=== PATIENT | female | born 1965 | race Caucasian/White ===

== ENCOUNTER 2018-07-05 19:07 | Inpatient (IN) | payer MEDICAID ==
[~2018-07-05] VITALS: Ht 171.4 cm; Wt 51.3 kg
[~2018-07-05 19:07] MED LIST: ALBU18HF2 INH; BENZ1LOZ58 MM; BUSP10TA3 PO; CARB200T8 PO; CLON0.1T14 PO; DIPH50CA37 PO; DOCO2CRE TP; ESCI10TA PO; FOLI1TAB16 PO; GABA-534 PO; HYDR-3895 PO; LIDO30AD10 TD; METH-406 PO; MOME13HF INH; OMEP20TA5 PO; TRAZ-214 PO
--- NOTE | 2018-07-05 21:00 | NUR ---
Pre-admission Note Assessment done in the intake office. Px appears anxious. She is A&Ox4. She is here for medically supervised withdrawals from ETOH. Breath smells ETOH. Speech is clear and audible. Px can ambulate but states that she has weakness on BLE. VS are as follows BP= 131/88, MN= 97, RR= 18, T= 96.7, O2sat= 96% on RA. She complains of 9/10 H/A and 10/10 pain on left rib cage secondary to fx. Px is allergic to PCN. She has seizures due to withdrawals and epilepsy. Last seizure was 2 days ago, 07/03/2018. Unit protocols discussed. Px verbalized understanding. Admission process will continue on the unit.
[2018-07-05] MEDS ORDERED: CHLO25CA22 PO (21:43)
[2018-07-05] MEDS ORDERED: IBUP-1955 PO (21:43)
[2018-07-05] MEDS ORDERED: DIPH50CA38 PO (21:43)
[2018-07-05] MEDS ORDERED: BUSP15TA3 PO (21:43)
[2018-07-05 21:45] VITALS: BP 136/89
--- NOTE | 2018-07-05 21:45 | NUR ---
CIWA 19 Upon assessment, px appears anxious. She states that her anxiety is 9/10. She complains of H/A 9/10, left rib cage pain of 10/10, and mild stomach cramps. Mild bilateral hand tremors noted on extended arms. will continue to monitor
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
[2018-07-05] MEDS ORDERED: DICYCLOMINE HCL 20 MG TABLET PO PRN (22:30)
[2018-07-05] MEDS ORDERED: DIAZEPAM 10 MG TABLET PO PRN (22:30)
[2018-07-05] MEDS ORDERED: HYDROXYZINE PAMOATE 25 MG CAPSULE PO PRN (22:30)
[2018-07-05] MEDS ORDERED: LOPERAMIDE HCL 2 MG CAPSULE PO PRN ×2 (22:30)
[2018-07-05] MEDS ORDERED: ACETAMINOPHEN 325 MG TABLET PO PRN (22:30)
[2018-07-05] MEDS ORDERED: ONDANSETRON 4 MG/2 ML VIAL IM PRN (22:30)
[2018-07-05] MEDS ORDERED: LORAZEPAM 2 MG/1 ML VIAL IM PRN (22:30)
[2018-07-05] MEDS ORDERED: MAGNESIUM HYDROXIDE 30 ML LIQUID UDC PO PRN (22:30)
[2018-07-05] MEDS ORDERED: THIAMINE HCL 200 MG/2 ML VIAL IM ONE (22:30)
[2018-07-05] MEDS ORDERED: MIRALAX 17 GM POWD.PACK PO PRN (22:30)
[2018-07-05] MEDS ORDERED: diphenhydrAMINE 50 MG CAPSULE PO PRN (22:30)
[2018-07-05] MEDS ORDERED: DIAZEPAM 5 MG TABLET PO PRN (22:30)
[2018-07-05] MEDS ORDERED: MAG HYDROX/AL HYDROX/SIMETH 30 ML LIQUID UDC PO PRN (22:30)
[2018-07-05] MEDS ORDERED: ONDANSETRON ODT 4 MG TAB.RAPDIS SL PRN (22:30)
[2018-07-05] MEDS ORDERED: KETOROLAC TROMETHAMINE 30 MG INJ IM ONE (22:45)
[2018-07-05] MEDS: DIAZEPAM 10 MG TABLET PO PRN (22:47)
--- NOTE | 2018-07-05 22:47 | NUR ---
PRN Valium Px received Valium 20 mg PO for CIWA 19. will continue to monitor
[2018-07-05] MEDS: CLONIDINE HCL 0.1 MG TABLET PO PRN (22:48)
--- NOTE | 2018-07-05 22:48 | NUR ---
PRN Clonidine Px received Clonidine 0.1 mg PO for anxiety.
--- NOTE | 2018-07-05 22:56 | NUR ---
1x dose Toradol Px received Toradol 30 mg IM injected on left deltoids for 9/10 H/A and 07/16 pain on left rib cage. will continue to monitor
--- NOTE | 2018-07-05 23:30 | NUR ---
1x dose Toradol reassessment Px states that her H/A improved to 1/10 and her left rib cage pain improved to 4/10. will continue to monitor
--- NOTE | 2018-07-05 23:50 | NUR ---
PRN Clonidine reassessment Reassessment deferred due to the px is asleep at the moment. will continue to monitor
--- NOTE | 2018-07-05 23:50 | NUR ---
PRN Valium reassessment Reassessment deferred due to the px is asleep at the moment. will continue to monitor
[2018-07-06] VITALS: BP 119/77
[2018-07-06 00:26] LABS: *AMPHETAMINE, URINE NEGATIVE (NEGATIVE); *BARBITURATE, URINE NEGATIVE (NEGATIVE); *CANNABINOID, URINE NEGATIVE (NEGATIVE); *COCCAINE, URINE NEGATIVE (NEGATIVE); *OPIATE, URINE NEGATIVE (NEGATIVE); *PHENCYCLIDINE SCREEN,URINE NEGATIVE (NEGATIVE)
[2018-07-06 01:22] LABS: BASOPHILS # (AUTO) 0.1 K/uL (0.0-8.0); BASOPHILS % (AUTO) 1.8 % (0.0-2.0); EOSINOPHILS # (AUTO) 0.2 K/uL (0.0-0.7); EOSINOPHILS % (AUTO) 5.6 % (0.0-7.0); HEMATOCRIT 34.1 % (31.2-41.9); HEMOGLOBIN 12.4 g/dL (10.9-14.3); LYMPHOCYTES # (AUTO) 1.8 K/uL (20.0-40.0); LYMPHOCYTES % (AUTO) 41.7 % (20.5-51.5); MEAN CORPUSCULAR HEMOGLOBIN 37.2 uug (24.7-32.8); MEAN CORPUSCULAR HGB CONC 36 g/dL (32.3-35.6); MEAN CORPUSCULAR VOLUME 102.6 fL (75.5-95.3); MONOCYTES # (AUTO) 0.3 K/uL (2.0-10.0); MONOCYTES % (AUTO) 6.7 % (0.0-11.0); NEUTROPHILS # (AUTO) 1.9 K/uL (1.8-8.9); NEUTROPHILS % (AUTO) 44.2 % (38.5-71.5); PLATELET COUNT (AUTO) 169 K/uL (179-408); RED BLOOD CELL COUNT(AUTO) 3.32 MIL/uL (3.63-4.92); WHITE BLOOD COUNT (AUTO) 4.4 K/uL (3.8-11.8)
[2018-07-06 01:31] LABS: BILIRUBIN,TOTAL 0.2 mg/dL (0.2-1.0); CREATININE 0.6 mg/dL (0.6-1.3); MAGNESIUM 1.9 mg/dL (1.8-2.4); POTASSIUM 3.6 mmol/L (3.5-5.1); TOTAL PROTEIN, SERUM 7.3 g/dL (6.4-8.2)
[2018-07-06 01:36] LABS: THYROID STIMULATING HORMONE 1.577 mIU/mL (0.358-3.740)
[2018-07-06 04:00] VITALS: BP 124/69
--- NOTE | 2018-07-06 04:00 | NUR ---
CIWA 18 Px wakes up, px appears anxious. She states that her anxiety is still at 9/10. Moderate bilateral hand tremors noted on extended arms. Very mild pins and needles on both feet. will continue to monitor
[2018-07-06] MEDS: DIAZEPAM 10 MG TABLET PO PRN (04:06)
--- NOTE | 2018-07-06 04:06 | NUR ---
PRN Valium Px received Valium 20 mg PO for CIWA 18. will continue to monitor
--- NOTE | 2018-07-06 05:06 | NUR ---
PRN Valium reassessment Px states that her anxiety is not changing, it is still very high. Moderate bilateral hand tremors still noted. CIWA 18
--- NOTE | 2018-07-06 05:16 | NUR ---
PRN Zofran and Vistaril Px received Vistaril 50 mg PO for anxiety and Zofran 4 mg SL for complains of mild nausea. will continue to monitor
--- NOTE | 2018-07-06 07:05 | NUR ---
End of Shift Note During the shift at 2246, she received Valium 20 mg PO for CIWA 19. It was not effective. At 225, 1x dose Toradol 30 mg IM given for H/A 06/16 and left rib cage 07/16, it was effective. At 2247, she received Clonidine 0.1 mg PO for anxiety, it was not effective. At 405, She received Valium 20 mg PO for CIWA 18. It was not effective. At 0516, she received Vistaril 50 mg PO and Zofran 4 mg SL for nausea. Reassessment deferred due to the px was asleep. Oral intake is 700 ml, voided 1x, No BM. Px slept intermittently for 5 hours total. Last CIWA 18 at 0400. Bed on lowest position, side rails up 2x and call light within reach. Well continue to monitor. Px endorsed to AM shift nurse
--- NOTE | 2018-07-06 07:30 | NUR ---
START OF SHIFT Endorse rcvd from ongoing nurse, client is in room, alert and oriented to name, place and situation. She presents with anxious, agitated mood, flushed face, flat affect, gross tremors, and difficulty concentrating. Client is on a 1:1 sitter for unsteady gait. Client reports feeling nauseous, dyspepsia, shaking, sweating, irritable, and a sense of panic. Encourage client to increase PO fluid as tolerated to facilitate detox. PRN Valium 20mg X 2 PO for anxiety, Toradol 30mg IM for pain, Vistaril 50mg PO for anxiety, Clonidine 0.1mg Po for agitation, Zofran 4mg SL for nausea. Client slept 5 hrs. Seizure precautions in place. Side rails x 2 up/padded. Call light within reach.
[2018-07-06 08:38] VITALS: BP 113/73
[2018-07-06] MEDS: THIAMINE HCL 100 MG TABLET PO SCH (08:42)
[2018-07-06] MEDS: FOLIC ACID 1 MG TABLET PO SCH (08:42)
[2018-07-06] MEDS: MULTIVITAMINS,THERAPEUTIC TABLET PO SCH (08:42)
--- NOTE | 2018-07-06 08:42 | NUR ---
CIWA 15 & PRN Valium 10mg PO Client reports anxiety, depression, agitation, irritable, emotional volatility, racing thoughts, feverish, gross tremors, nausea, poor appetite, stomach cramps, restless legs, sweats and fatigue. PRN Valium 10mg PO administered. Call light within reach.
[2018-07-06] MEDS ORDERED: TUBERCULIN,PURIF.PROT.DERIV. 5 TU/0.1 ML TEST ID ONE (09:00)
--- NOTE | 2018-07-06 09:01 | NUR ---
PPD Test not administered, client refused, stating, "No, I just had one done recently." Client denies any chest pain or cough. MD notified.
--- NOTE | 2018-07-06 09:42 | NUR ---
Reassess PRN Valium 10mg, CIWA 13 Client reports feeling no almost no difference from an hour ago, she continues to have anxiety, depression, agitation, irritable, emotional volatility, racing thoughts, feverish, gross tremors, nausea, poor appetite, stomach cramps, restless legs, sweats and fatigue. Client refuses other available PRN meds at this time. Dr. Washington notified, she will go and see client shortly. Call light within reach.
[2018-07-06] MEDS ORDERED: 5 DAY TAPER VALIUM-SERENITY PROTOCOL PO PRN (09:45)
[2018-07-06] MEDS: ESCITALOPRAM OXALATE 10 MG TABLET PO SCH (11:22)
[2018-07-06] MEDS: KETOROLAC TROMETHAMINE 30 MG INJ IM PRN (11:22)
[2018-07-06] MEDS: busPIRone 10 MG TABLET PO SCH ×3 (11:22→16:40)
[2018-07-06] MEDS: GABAPENTIN 300 MG CAPSULE PO SCH ×3 (11:22→16:40)
--- NOTE | 2018-07-06 11:22 | NUR ---
PRN Toradol 30mg IM administered to R buttock for left lateral torso pain 05/16. Call light within reach.
[2018-07-06] MEDS ORDERED: ALBUTEROL SULFATE 8 GM HFA.AER.AD INH PRN (11:30)
--- NOTE | 2018-07-06 12:02 | NUR ---
Reassess PRN Toradol 30mg IM, client report pain at 7/10, and requests Valium, client was educated on Valium medication, she requires additional education. Call light within reach.
[2018-07-06] MEDS ORDERED: ALBUTEROL SULFATE 2.5 MG/3 ML NEBU NEB PRN (12:15)
[2018-07-06 12:17] VITALS: BP 104/62
[2018-07-06] MEDS: DIAZEPAM 10 MG TABLET PO SCH ×3 (12:31→20:24)
--- NOTE | 2018-07-06 12:31 | NUR ---
WA 19 Client reports anxiety, depression, agitation, irritable, emotional volatility, racing thoughts, feverish, gross tremors, nausea, poor appetite, stomach cramps, restless legs, sweats and fatigue. Schedule Valium 10mg PO administered. Call light within reach.
[2018-07-06] MEDS: CARBAMAZEPINE 200 MG TABLET PO SCH (16:40)
[2018-07-06 16:46] VITALS: BP 108/65
--- NOTE | 2018-07-06 17:30 | NUR ---
CIWA 18 Client continues to presents with anxiety, depression, agitation, irritable, emotional volatility, racing thoughts, feverish, gross tremors, nausea, poor appetite, stomach cramps, restless legs, sweats and fatigue. Schedule Valium 10mg PO administered. Call light within reach.
--- NOTE | 2018-07-06 19:17 | NUR ---
END OF SHIFT Endorse client to incoming nurse, client is in room, a/o x 4. Client continues to present agitation, anxiety, tremors, nausea, restlessness, and difficulty concentrating. Client is on 1:1 sitter for unsteady gait. PT consult schedule for tomorrow. Client is on first of 5 day Valium. PRN medications administered and noted per protocol. Last CIWA 18 @ 1600. PO fluid intake 796mL, void x 2, stool x 2. Client is non-compliant with group therapy due to above withdrawal symptoms. Consumes 50-75% of meals. Call light within reach.
[2018-07-06 20:00] VITALS: BP 118/73
--- NOTE | 2018-07-06 20:00 | NUR ---
Start of Shift Pt is a 53 year old female admitted for ETOH, placed on a 5 day Valium taper. At time of assessment, pt presents in bed with eyes closed. Pt responds to name and awakens easily. Pt appears flushed, skin clammy. Hair is uncombed, in disheveled stated. Pt reports feeling tired, reports body aches, joint aches, chills, moderate tremors, restlessness and anxiety/irritability. Pt is on a 1:1 for safety. CIWA 18, medications due. Safety measures in place, will continue to monitor.
[2018-07-06] MEDS: TRAZODONE 100 MG TABLET PO SCH (20:24)
[2018-07-07] VITALS: BP 102/65
--- NOTE | 2018-07-07 | NUR ---
CIWA Deferred CIWA deferred d/t pt sleeping - to assess while pt is awake as ordered. BP 102/65, Pulse 78, resp 17, SpO2 96% RA, temp 98.[address], will continue to monitor.
[2018-07-07 03:42] VITALS: BP 116/71
[2018-07-07] MEDS: CLONIDINE HCL 0.1 MG TABLET PO PRN ×3 (03:42→20:43)
--- NOTE | 2018-07-07 03:42 | NUR ---
CIWA Assessment Clonidine PRN Administration CIWA 12 Pt presents with anxiety, irritability and restlessness. Pt states, I just woke up and I feel all over the place. I had a vivid dream. Pt reports generalized body aches, chills, tremors noted and skin flushed. Clonidine 0.1mg PRN administered. Safety measures in place, will continue to monitor.
--- NOTE | 2018-07-07 04:42 | NUR ---
Clonidine PRN Reassessment Upon reassessment, pt is sleeping, eyes closed respirations even/unlabored. Safety measures in place, will continue to monitor.
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
--- NOTE | 2018-07-07 07:30 | NUR ---
START OF SHIFT Received report from hotel night auditor nurse. Pt is lying in bed resting and is easily arousable. She is a 53 yo female admitted to [facility] on 07/05 for ETOH withdrawal. 5 day Valium taper started on 07/06. Pt is on a 1:1 for unsteady gait r/t ETOH withdrawal symptoms. She mobilizes via wheelchair. PT eval ordered for today. She was administered PRN Clonidine on hotel night auditor. Respirations even and unlabored. Skin is warm and moist. Last CIWA was 12 and she slept for 9 hours. Safety measures in place.
[2018-07-07 08:00] VITALS: BP 119/75
[2018-07-07 08:06] LABS: BASOPHILS # (AUTO) 0.1 K/uL (0.0-8.0); BASOPHILS % (AUTO) 1.4 % (0.0-2.0); EOSINOPHILS # (AUTO) 0.3 K/uL (0.0-0.7); EOSINOPHILS % (AUTO) 8.1 % (0.0-7.0); HEMATOCRIT 32.3 % (31.2-41.9); HEMOGLOBIN 11.5 g/dL (10.9-14.3); LYMPHOCYTES % (AUTO) 28.3 % (20.5-51.5); MEAN CORPUSCULAR HEMOGLOBIN 37.1 uug (24.7-32.8); MEAN CORPUSCULAR HGB CONC 36 g/dL (32.3-35.6); MEAN CORPUSCULAR VOLUME 104.4 fL (75.5-95.3); MONOCYTES # (AUTO) 0.3 K/uL (2.0-10.0); MONOCYTES % (AUTO) 8.5 % (0.0-11.0); NEUTROPHILS # (AUTO) 1.9 K/uL (1.8-8.9); NEUTROPHILS % (AUTO) 53.7 % (38.5-71.5); PLATELET COUNT (AUTO) 133 K/uL (179-408); RED BLOOD CELL COUNT(AUTO) 3.09 MIL/uL (3.63-4.92); WHITE BLOOD COUNT (AUTO) 3.6 K/uL (3.8-11.8)
[2018-07-07 08:20] LABS: BILIRUBIN,DIRECT 0.1 mg/dL (0.0-0.2); BILIRUBIN,TOTAL 0.5 mg/dL (0.2-1.0); TOTAL PROTEIN, SERUM 6.8 g/dL (6.4-8.2)
--- NOTE | 2018-07-07 09:00 | NUR ---
CIWA assessment Pt has tremors, difficulty sleeping, anxiety, and restlessness. Her voice is shaky, affect is flat, mood is depressed. She is tearful during assessment. She expresses feelings of guilt and remorse. She has left sided pain 8/10 due to a fall prior to admission while intoxicated. Her body movements are hypoactive. She states "I had a terrible night's sleep with awful dreams". She remains on 1:1 for unsteady gait. CIWA score 16.
[2018-07-07] MEDS: busPIRone 10 MG TABLET PO SCH ×3 (09:04→16:54)
[2018-07-07] MEDS: FOLIC ACID 1 MG TABLET PO SCH (09:05)
[2018-07-07] MEDS: ESCITALOPRAM OXALATE 10 MG TABLET PO SCH (09:05)
[2018-07-07] MEDS: CARBAMAZEPINE 200 MG TABLET PO SCH ×2 (09:06→16:54)
[2018-07-07] MEDS: MULTIVITAMINS,THERAPEUTIC TABLET PO SCH (09:06)
[2018-07-07] MEDS: GABAPENTIN 300 MG CAPSULE PO SCH ×3 (09:06→16:54)
[2018-07-07] MEDS: THIAMINE HCL 100 MG TABLET PO SCH (09:07)
[2018-07-07] MEDS: LIDOCAINE 5% PATCH TD SCH (09:07)
[2018-07-07] MEDS: DIAZEPAM 10 MG TABLET PO SCH ×3 (09:07→20:43)
[2018-07-07] MEDS: IBUPROFEN 400 MG TABLET PO PRN ×2 (09:07→16:54)
--- NOTE | 2018-07-07 09:10 | NUR ---
Clarification of Use History Pt's UDS was positive for BZD's on admission. Pt clarified that she took one dose of Librium on the day of admission.
[2018-07-07 12:00] VITALS: BP 119/75
--- NOTE | 2018-07-07 12:30 | NUR ---
CIWA Assessment Pt is experiencing sweating, moderate tremors, anxiety, and feeling of panic. She has a flat affect and depressed mood. Her appearance is disheveled and her room is odorous. She remains on 1:1 for unsteady gait. CIWA score 15.
[2018-07-07 13:06] LABS: HEPATITIS B SURFACE AG Negative (Negative)
--- NOTE | 2018-07-07 13:51 | NUR ---
PRN Clonidine Pt states, "I feel like I'm having a panic attack". B/P has increased since last checked. B/P currently 124/79. Encouraged relaxation and deep breathing. PRN Clonidine administered. Addendum: 07/07/18 at 1553 by MARYAN DONATO RN Pt is also experiencing moderate tremors and diaphoresis.
--- NOTE | 2018-07-07 14:25 | NUR ---
Therapist prompted client to attend all group therapy sessions.
--- NOTE | 2018-07-07 14:30 | NUR ---
CIWA Assessment Pt is experiencing sweating, tremors, difficulty concentrating, and anxiety. She has been sleeping on and off. Her appearance is disheveled and her room is odorous. She remains on 1:1 for unsteady gait. CIWA score 13.
--- NOTE | 2018-07-07 14:51 | NUR ---
PRN Clonidine reassessment PRN Clonidine somewhat effective. Pt reports a moderate level of anxiety but does not have a feeling of panic anymore.
[2018-07-07 16:30] VITALS: BP 113/74
--- NOTE | 2018-07-07 16:55 | NUR ---
PRN Motrin Pt is having left upper quadrant pain 8/ r/t a fall prior to admission. She refused PRN Toradol injection. PRN Motrin administered.
--- NOTE | 2018-07-07 17:55 | NUR ---
PRN Motrin reassessment PRN Motrin somewhat effective. Pt's pain level is reduced to 4/10.
--- NOTE | 2018-07-07 19:23 | NUR ---
END OF SHIFT Report provided to fast food shift supervisor nurse. Pt is lying in bed resting. She is a 53 yo female admitted to [facility] on 07/05 for ETOH withdrawal. 5 day Valium taper started on 07/06. Pt remains on a 1:1 for unsteady gait r/t ETOH withdrawal symptoms. She mobilizes to the patio via wheelchair. PT evaluated patient today with recommendation for stand-by assist and to walk around the unit throughout the day as tolerated. She has left upper quadrant pain r/t a fall prior to admission. Lidocaine patch placed this morning per MD orders. She was experiencing ongoing anxiety. PRN Clonidine and Motrin x2 administered. She spent most of the day in bed. Last CIWA was 13 and she drank 500mL. Fluids encouraged. Safety measures in place.
[2018-07-07 20:00] VITALS: BP 110/75
--- NOTE | 2018-07-07 20:00 | NUR ---
Start of Shift Patient on bed, noted to be anxious, melancholic and with gross tremors. Patient c/o generalized body aches=4/10, with PRN medications. Patient with unsteady gait, seen and evaluated by Physical Therapist and continues on 1:1 for safety. Encouraged patient to ambulate with assistance. Patient with wheelchair on bedside for ambulation to the patio. Patient verbalized feeling depressed, no SI/HI. Patient also c/o intermittent nausea. Fall, universal, seizure and safety prec in place. Call light within reach. Latest CIWA=14. Will continue to monitor.
[2018-07-07] MEDS: TRAZODONE 100 MG TABLET PO SCH (20:43)
--- NOTE | 2018-07-07 20:44 | NUR ---
PRN Clonidine Patient c/o anxiety and increasing agitation. Patient appears fidgety. Administered Clonidine 0.1 mg PO PRN as ordered. Will reassess.
--- NOTE | 2018-07-07 21:45 | NUR ---
Clonidine reassess Patient verbalized that he anxiety level has decreased "considerably".
[2018-07-08] VITALS: BP 104/69
--- NOTE | 2018-07-08 | NUR ---
CIWA=12 Patient with 1:1 at bedside, c/o anxiety and persistent tremors. Patient verbalized feeling disappointed with herself. Provided therapeutic communication by letting patient express her feelings.
[2018-07-08] MEDS: KETOROLAC TROMETHAMINE 30 MG INJ IM PRN ×3 (02:57→22:37)
[2018-07-08] MEDS: CLONIDINE HCL 0.1 MG TABLET PO PRN ×3 (02:58→21:00)
--- NOTE | 2018-07-08 02:59 | NUR ---
PRN Toradol and Clonidine Patient c/o left torso pain around the ribcage=8/10. Patient also c/o increasing anxiety and easily gets agitated. Administered Toradol 30 mg IM PRN and Clonidine 0.1 mg PO PRN. Will reassess.
--- NOTE | 2018-07-08 03:30 | NUR ---
Toradol reassess Patient asleep on bed with no facial grimacing and SOB noted.
[2018-07-08 04:00] VITALS: BP 111/67
--- NOTE | 2018-07-08 04:00 | NUR ---
CIWA=12 and Clonidine reassess Patient verbalized feeling "a tad better and stated that current pain level of the left torso=3/10. Patient is intermittently anxious and continues to have tremors and has a depressed mood. 1:1 sitter for safety at bedside.
--- NOTE | 2018-07-08 07:15 | NUR ---
End of Shift Patient continues to need standby assistance when ambulating and needs wheelchair to be brought to the pation. Patient on 1:1 for safety. Patient noted with gross tremors and is anxious and is depressed mood. Encouraged patient to ambulate this morning, walker will be provided if patient requests for it. Patient verbalized having intermittent nausea and continues to c/o left torso pain s/p fall 2 days prior to admission. Patient with sad demeanor and is disheveled. Fall, universal, seizure and safety prec in place. Call light within reach. Latest CIWA=12, slept for 6 hours. Endorsed to AM shift nurse for continuity of care.
[2018-07-08 08:00] VITALS: BP 94/61
--- NOTE | 2018-07-08 08:00 | NUR ---
Start Of Shift / CIWA 15 Received 53 y/o F admitted on 07/05/18 for medically supervised ETOH withdrawal. Today is the 3rd day of a 5 day valium taper and tolerating well. Received pt a/ox4, respirations even and unlabored. 1:1 sitter at bedside for unsteady gait. Pt has a disheveled appearance, anxious and depressive mood, flat affect. Pt presents anxiety, panic attacks, agitation, restlessness, clammy skin, c/o sensitivity to the light, headache, pain in the L rib cage fx d/t a fall, fatigue, increased emotional amplitude, gross/fine tremors are noted. Last CIWA 12, toradol and clonidine prns given last night and slept 6 hrs. Pt ambulates via wheelchair when going downstairs. Encouraged pt to walk in the hallway during the day w/ assistance as tolerated; pt verbalized understanding. Educated pt with today's plan of care and med regimen. Side rails upx2, bed in lowest position. Call light is within reach. Will continue to monitor.
[2018-07-08] MEDS: ESCITALOPRAM OXALATE 10 MG TABLET PO SCH (09:06)
[2018-07-08] MEDS: CARBAMAZEPINE 200 MG TABLET PO SCH ×2 (09:06→16:46)
[2018-07-08] MEDS: FOLIC ACID 1 MG TABLET PO SCH (09:06)
[2018-07-08] MEDS: DIAZEPAM 5 MG TABLET PO SCH ×4 (09:06→21:00)
[2018-07-08] MEDS: GABAPENTIN 300 MG CAPSULE PO SCH ×3 (09:06→16:46)
[2018-07-08] MEDS: THIAMINE HCL 100 MG TABLET PO SCH (09:06)
[2018-07-08] MEDS: LIDOCAINE 5% PATCH TD SCH (09:06)
[2018-07-08] MEDS: busPIRone 10 MG TABLET PO SCH ×3 (09:06→16:46)
[2018-07-08] MEDS: MULTIVITAMINS,THERAPEUTIC TABLET PO SCH (09:06)
--- NOTE | 2018-07-08 09:07 | NUR ---
PRN Toradol 30 mg IM given for c/o pain in the L rib side fx pain 05/16. Will monitor and reassess.
--- NOTE | 2018-07-08 09:17 | NUR ---
Reassessment Pt reports pain is much more tolerable and decreased to 5/10. Will continue to monitor.
--- NOTE | 2018-07-08 11:16 | NUR ---
PRN Clonidine 0.1 mg po prn given for c/o sense of panic, extreme anxiety, pt is in bed taking deep breaths and closing her eyes. Will monitor closely and reassess. 1:1 sitter at beside.
--- NOTE | 2018-07-08 12:16 | NUR ---
Reassessment Pt is laying in bed w/ eyes closed, appears to be sleeping. Sitter by bedside, safety measures in place. Will continue to closely monitor.
[2018-07-08 12:27] VITALS: BP 106/76
--- NOTE | 2018-07-08 13:40 | NUR ---
CIWA 16 Pt has is awake from nap and states she is feeling somewhat better than previously; presents gross tremors, depressive and anxious mood, increased emotional amplitude, flat affect, clammy skin, pain in the L rib cage d/t fx, restlessness, sensitivity to the light, fatigue, anhedonia, dysphoria, and agitation. Pt is to be given scheduled buspar, gabapentin and valium. Will continue to monitor. Sitter at bedside.
[2018-07-08 16:00] VITALS: BP 102/68
--- NOTE | 2018-07-08 16:30 | NUR ---
CIWA 16 Pt donald been in room in bed, continues to presents gross/fine tremors, a flat affect, depressive and anxious mood, increased emotional amplitude, clammy skin, pain in the L rib cage d/t fx 6/10 pain, restlessness, sensitivity to the light, fatigue, anhedonia, dysphoria, and agitation. Pt is to be given scheduled 1700 buspar, gabapentin and valium. Will continue to monitor. Sitter at bedside.
--- NOTE | 2018-07-08 19:33 | NUR ---
End Of Shift Pt has been mostly isolative in room during shift. Pt had an episode of increased anxiety w/ sense of panic; clonidine given and effective. Pt slept intermittently throughout shift. C/o L rib pain r/t s/p fall injury. Toradol IM prn given. Last CIWA 16 @1600. VS wnl. Encouraged pt to increase food intake; pt verbalized decreased appetite makes it difficult to eat. Gross/fine tremors noted. 1:1 sitter continued for unsteady gait. Safety measures in place.
[2018-07-08 20:00] VITALS: BP 128/74
--- NOTE | 2018-07-08 20:00 | NUR ---
Start of Shift Patient on bed with 1:1 sitter for safety, noted to be anxious and observed with gross tremors and is fidgety. Patient with weak gait but can ambulate with assistance by 1 person. No wheelchair needed for ambulation to the patio. Encouraged patient to continue to ambulate. Patient appears melancholic. Patient also c/o intermittent nausea. Fall, universal, seizure and safety prec in place. Call light within reach. Latest CIWA=13. Will continue to monitor.
[2018-07-08] MEDS: TRAZODONE 100 MG TABLET PO SCH (21:00)
--- NOTE | 2018-07-08 21:00 | NUR ---
PRN Clonidine Patient c/o increasing anxiety, noted to be fidgety. Administered Clonidine 0.1 mg PO PRN. Will reassess.
--- NOTE | 2018-07-08 22:00 | NUR ---
Clonidine reassess Patient verbalized that her anxiety level has decreased and appears relaxed.
--- NOTE | 2018-07-08 22:38 | NUR ---
PRN Toradol Patient c/o left torso pain around the ribcage=8/10, observed to have facial grimacing and irritability. Administered Toradol 30 mg IM PRN. Will reassess.
--- NOTE | 2018-07-08 23:10 | NUR ---
Toradol reassess Patient stated that her pain level has decreased to 3/10. No facial grimacing noted.
[2018-07-09] VITALS: BP 114/71
--- NOTE | 2018-07-09 | NUR ---
CIWA=12 Patient continues to have tremors, has erratic anxiety levels and c/o pain on left ribcage upon movement. Pain is relieved by Toradol.
[2018-07-09 04:00] VITALS: BP 109/68
--- NOTE | 2018-07-09 04:00 | NUR ---
CIWA=12 Patient presents with depressed mood and is withdrawn. Patient has continuous anxiety and tremors. Patient verbalized feeling better today than yesterday.
--- NOTE | 2018-07-09 07:08 | NUR ---
End of Shift Patient continues on 1:1 for safety, ambulates with 1 person assist. Patient can tolerate ambulating to the patio without the use of wheelchair. Patient still noted with gross tremors, is anxious and in depressed mood. Patient continues to c/o left torso pain, relieved by Toradol IM PRN. Patient is disheveled and with unkempt hair. Fall, universal, seizure and safety prec in place. Call light within reach. Latest CIWA=12, slept for 6 hours. Endorsed to AM shift nurse for continuity of care.
--- NOTE | 2018-07-09 07:44 | NUR ---
Start Of Shift / CIWA 12 Received 53 y/o F admitted on 07/05/18 for medically supervised ETOH withdrawal. Today is the 4th day of a 5 day valium taper and tolerating well. Received pt a/ox4, respirations even and unlabored. 1:1 sitter at bedside for unsteady gait. Pt is laying in bed, has a disheveled appearance, has a depressive mood, with flat affect. Pt presents anxiety, panic attacks, agitation, restlessness, clammy skin, c/o sensitivity to the light, headache, pain in the L rib cage fx r/t s/p fall, fatigue, increased emotional amplitude, dysphoria, anhedonia, gross/fine tremors are noted. Last , toradol and clonidine prns given last night and slept 6 hrs. Encouraged pt to walk in the hallway during the day w/ assistance as instructed by pt and as tolerated; pt verbalized understanding. Educated pt with today's plan of care and med regimen. Side rails upx2, bed in lowest position. Call light is within reach. Will continue to monitor.
[2018-07-09 08:08] VITALS: BP 98/64
[2018-07-09] MEDS: ESCITALOPRAM OXALATE 10 MG TABLET PO SCH (08:47)
[2018-07-09] MEDS: MULTIVITAMINS,THERAPEUTIC TABLET PO SCH (08:47)
[2018-07-09] MEDS: GABAPENTIN 300 MG CAPSULE PO SCH ×3 (08:47→17:59)
[2018-07-09] MEDS: CARBAMAZEPINE 200 MG TABLET PO SCH ×2 (08:47→17:59)
[2018-07-09] MEDS: busPIRone 10 MG TABLET PO SCH ×3 (08:47→17:59)
[2018-07-09] MEDS: DIAZEPAM 5 MG TABLET PO SCH ×3 (08:47→21:27)
[2018-07-09] MEDS: THIAMINE HCL 100 MG TABLET PO SCH (08:47)
[2018-07-09] MEDS: KETOROLAC TROMETHAMINE 30 MG INJ IM PRN ×2 (08:48→21:27)
[2018-07-09] MEDS: FOLIC ACID 1 MG TABLET PO SCH (08:48)
--- NOTE | 2018-07-09 08:48 | NUR ---
PRN Toradol 30 mg IM prn given for L rib pain r/t rib fx s/p fall. Pt states pain is 8/10. Will monitor and reassess.
[2018-07-09] MEDS: LIDOCAINE 5% PATCH TD SCH (08:50)
--- NOTE | 2018-07-09 09:48 | NUR ---
Reassessment Pt reports med as effective in decreasing L ribcage pain from 8 to 6 out of 10. Will monitor and reassess.
--- NOTE | 2018-07-09 10:35 | NUR ---
Therapist prompted client to attend twice daily group therapy sessions.
[2018-07-09 12:24] VITALS: BP 113/74
--- NOTE | 2018-07-09 12:30 | NUR ---
CIWA 12 Pt has been sleeping intermittently, states it is due to her meds. Pt has a depressive mood, with flat affect. Pt presents anxiety, agitation, restlessness, clammy skin, headache, pain in the L rib cage fx r/t s/p fall, fatigue, increased emotional amplitude, dysphoria, anhedonia, gross/fine tremors are noted. Gabapentin and buspar to be given. Pt states she will attend afternoon group. Will continue to monitor.
--- NOTE | 2018-07-09 13:59 | NUR ---
Therapist prompted client to attend group therapy.
[2018-07-09 16:00] VITALS: BP 109/79
--- NOTE | 2018-07-09 16:30 | NUR ---
CIWA 12 Pt continues to have a depressive mood, with flat affect. Pt states due to some of her meds, she has been feeling tired after taking it. Pt presents fatigue, anxiety, agitation, restlessness, clammy skin, headache, pain in the L rib cage fx r/t s/p fall, fatigue, increased emotional amplitude, dysphoria, anhedonia, gross/fine tremors are noted. Gabapentin, tegretol and buspar to be given. Will continue to monitor.
[2018-07-09] MEDS: CLONIDINE HCL 0.1 MG TABLET PO PRN (18:03)
--- NOTE | 2018-07-09 18:03 | NUR ---
PRN Clonidine 0.1 mg po prn given for increased anxiety and palpitations. Will monitor and reassess.
--- NOTE | 2018-07-09 19:03 | NUR ---
Reassessment Pt appears to be sleeping in bed. Eyes are closed, respirations even and unlabored. Sitter at bedside.
--- NOTE | 2018-07-09 19:14 | NUR ---
End Of Shift Last CIWA 12. continues to have 1:1 sitter for unsteady gait. Pt was able to ambulate in the hallways without assistance today however still weak and tremulous. Pt went to afternoon group. Toradol IM and clonidine prn was given to pt and effective. safety measures in place.
[2018-07-09 20:00] VITALS: BP 118/81
--- NOTE | 2018-07-09 20:00 | NUR ---
Start of Shift Note Received 53 y/o female nathan, admitted for medically supervised withdrawal from ETOH. Px was placed on 5 day Valium taper started 07/06/2018. She is tolerating it. Px is still on 1 to 1 for safety. Nathan states that she walk by herself today without help. Last reported CIWA 12 by AM shift nurse. During the rounds at 1999, nathan is awake on bed in fowlers position, watching TV. She states that her anxiety is 7/10 and still complains of left rib cage pain 7/10. Bilateral hand tremors noted on extended arms. Bed side on lowest position, side rails up 2x , and call light within reach. Well continue to monitor.
--- NOTE | 2018-07-09 20:00 | NUR ---
CIWA 13 On assessment, she states that her anxiety is 7/10 and still complains of left rib cage pain 7/10. Bilateral hand tremors noted on extended arms. will continue to monitor
[2018-07-09] MEDS: TRAZODONE 100 MG TABLET PO SCH (21:27)
--- NOTE | 2018-07-09 21:27 | NUR ---
PRN Toradol Px received Toradol 30 mg IM injection for pain of 7/10. To reassess after 30 mins. will continue to monitor
--- NOTE | 2018-07-09 22:00 | NUR ---
JUSTIN Shaffer Px states that her left rib cage pain improved to 01/14, "It comes and goes." will continue to monitor Addendum: 07/09/18 at 2303 by ELDA FRITZ RN Reassessment
[2018-07-10] VITALS: BP 110/77
--- NOTE | 2018-07-10 | NUR ---
CIWA deferred CIWA deferred due to the px is asleep, to assess if the px is awake per doctor's order. will continue to monitor
[2018-07-10 04:00] VITALS: BP 100/69
--- NOTE | 2018-07-10 04:00 | NUR ---
CIWA deferred CIWA deferred due to the px is asleep, to assess if the px is awake per doctor's order. will continue to monitor
--- NOTE | 2018-07-10 07:10 | NUR ---
End of Shift Note During the shift at 2126, px received Toradol 30 mg IM injection for left rib cage pain of 04/15. It was effective. Oral intake is 1400 ml, voided 4x, BM 2x. Slept for 7 hours. Last CIWA 13. Bed side on lowest position, side rails up 2x , and call light within reach. Well continue to monitor. Px endorsed to AM shift nurse
[2018-07-10 08:00] VITALS: BP 125/80
--- NOTE | 2018-07-10 08:00 | NUR ---
Start of Shift Notes/CIWA Assessment: Patient endorsement received from night nurse. Patient is a 53 year old female admitted for ETOH withdrawal who was placed on a 5-day Valium taper as ordered. Patient will be on her last day of the taper. She was given PRN Toradol during the night. Last CIWA 13 and slept for a total of 7 hours. 1:1 at bedside due to unsteady gait. Received patient in her room. Alert and oriented x 4. Denies S/I or H/I noted. No AV hallucinations noted. She appears disheveled, dark circles around eyes with worried facial expression. Noted with gross tremors, complains of intermittent sweating, increased anxiety, agitation and generalized discomfort. CIWA 16 upon this assessment. She also complains of 8/10 generalized pain and receives Lidocaine patch for pain management. Encouraged patient to verbalize her feelings and concerns. Educated patient on her current plan of care for the day and her medication regimen. Encourage oral fluid intake and encouraged group participation to learn new skills to prevent relapse. All needs met and attended. Will continue to monitor closely.
[2018-07-10] MEDS: busPIRone 10 MG TABLET PO SCH ×3 (09:07→16:31)
[2018-07-10] MEDS: MULTIVITAMINS,THERAPEUTIC TABLET PO SCH (09:07)
[2018-07-10] MEDS: GABAPENTIN 300 MG CAPSULE PO SCH ×3 (09:07→16:31)
[2018-07-10] MEDS: FOLIC ACID 1 MG TABLET PO SCH (09:08)
[2018-07-10] MEDS: CARBAMAZEPINE 200 MG TABLET PO SCH ×2 (09:08→16:31)
[2018-07-10] MEDS: ESCITALOPRAM OXALATE 10 MG TABLET PO SCH (09:08)
[2018-07-10] MEDS: KETOROLAC TROMETHAMINE 30 MG INJ IM PRN (09:09)
[2018-07-10] MEDS: THIAMINE HCL 100 MG TABLET PO SCH (09:09)
[2018-07-10] MEDS: DIAZEPAM 5 MG TABLET PO SCH ×2 (09:09→21:19)
[2018-07-10] MEDS: LIDOCAINE 5% PATCH TD SCH (09:09)
--- NOTE | 2018-07-10 09:09 | NUR ---
Toradol 30 mg IM given: Patient noted with complain of 8/10 generalized pain. Non-pharmacological interventions provided but ineffective. Medicated patient with Toradol 30 mg IM as ordered. Will monitor for effectiveness.
--- NOTE | 2018-07-10 09:39 | NUR ---
Re-assessment: Toradol Patient reports her PL is now a /. PRN Toradol was effective.
[2018-07-10 12:00] VITALS: BP 123/77
--- NOTE | 2018-07-10 12:00 | NUR ---
CIWA Assessment: CIWA 14, patient continues to present with s/s of withdrawal related to ETOH m/b gross tremors, generalized discomfort, difficulty concentrating, fatigue, anxiety, and generalized discomfort. Encourage patient to participate in group and activities. Will continue to monitor and provide support.
--- NOTE | 2018-07-10 12:58 | NUR ---
Off 1:1: Patient was seen and examined by Dr. Simmons. Patient is able to ambulate with steady gait. Off 1:1 at this time. Educated patient on safety and fall precautions.
[2018-07-10 16:00] VITALS: BP 119/82
--- NOTE | 2018-07-10 16:14 | NUR ---
CIWA Assessment: CIWA 11, patient continues to present with s/s of withdrawal m/b gross tremors, anxiety, agitation, intermittent perspiration, fatigue, and facial flushing. Patient was able to participate in group and activities. Will continue to monitor the patient and medicate as ordered. Will continue to monitor.
--- NOTE | 2018-07-10 19:02 | NUR ---
End of Shift Notes: Patient continues to be on 5-day Valium taper as ordered. This is patients 5th day of her taper. VS monitored closely. No significant abnormalities noted. Withdrawal symptoms were closely monitored. Initial CIWA 16, patient presented with gross tremors, intermittent perspiration, myalgia, anxiety, agitation, worried facial expression, anhedonia, paresthesia, and generalized discomfort. Last CIWA 11. Patient verbalizes that Valium has been effective in reducing her withdrawal symptoms. Patient was taken off 1:1 today. She denies S/I or H/I noted. No AV hallucinations. Patient requires encouragement to attend activities and participate in group. PRN Toradol was given at 0909 for left rib pain and generalized myalgia with help. All needs met and attended. Will continue to monitor.
--- NOTE | 2018-07-10 19:30 | NUR ---
Start of Shift Patient Received. Per endorsement, patient continues on a modified Valium taper. 1:1 was discontinued per MD. Patient noted with steady gait and no assistance needed. Patient was given PRN Toradol with medication noted to be effective. PRN Toradol changed to PRN Mobic. Last noted CIWA 11. Upon rounds patient is noted in her room, awake, alert and verbally responsive. Breathing even and non labored. Patient is noted to be disheveled with flat affect. Patient is able to verbalize that medication has been noted effective with minimizing signs and symptoms of withdrawal. Patient is focused on receiving PRN medications throughout the night due to patient not being able to sleep. Explained to patient to try and stay present. Patient is able to be redirected. All needs attended to promptly. Will continue plan of care as ordered.
[2018-07-10 20:30] VITALS: BP 107/71
[2018-07-10] MEDS: MELOXICAM 7.5 MG TABLET PO PRN (21:19)
[2018-07-10] MEDS: TRAZODONE 100 MG TABLET PO SCH (21:19)
--- NOTE | 2018-07-10 21:20 | NUR ---
PRN Medication Administration patient is noted verbalizing increased pain due. PRN Mobic administered with routine medications. Will continue to monitor.
--- NOTE | 2018-07-10 22:20 | NUR ---
PRN Medication Reassessment Patient is noted in bed with eyes closed. Breathing even and non labored. No signs of restlessness or discomfort noted. PRN Mobic noted to be effective. Will continue to monitor.
--- NOTE | 2018-07-11 00:30 | NUR ---
PRN Medication Reassessment Patient is noted in bed with eyes closed. Breathing even and non labored. No signs of restlessness or facial grimacing noted. PRN Clonidine noted to be effective. Will continue to monitor. Addendum: 07/11/18 at 0147 by DHAVAL ENGEL LVN ENTERED at WRONG TIME
[2018-07-11 00:32] VITALS: BP_SYST 92; BP_SYST 96; BP_DIAS 51; BP_DIAS 63
[2018-07-11] MEDS: CLONIDINE HCL 0.1 MG TABLET PO PRN ×2 (00:38→15:24)
--- NOTE | 2018-07-11 00:38 | NUR ---
PRN Medication Administration patient is noted awake and verbalizing increased anxiety, agitation, tremors, and chills. PRN Clonidine administered. Will continue to monitor.
--- NOTE | 2018-07-11 01:30 | NUR ---
PRN Medication Reassessment Patient is noted in bed with eyes closed. Breathing even and non labored. No signs of restlessness or facial grimacing noted. PRN Clonidine noted to be effective. Will continue to monitor.
--- NOTE | 2018-07-11 04:20 | NUR ---
PRN Medication Administration Patient is noted in bed with eyes closed. Breathing even and non labored. No signs of restlessness or facial grimacing noted. Vitals refused. CIWA not able to be completed as per order. Will continue to monitor. Addendum: 07/11/18 at 0547 by DHAVAL ENGEL LVN CIWA Assessment
[2018-07-11 06:52] LABS: BASOPHILS # (AUTO) 0.1 K/uL (0.0-8.0); BASOPHILS % (AUTO) 1.3 % (0.0-2.0); EOSINOPHILS # (AUTO) 0.2 K/uL (0.0-0.7); EOSINOPHILS % (AUTO) 5.2 % (0.0-7.0); HEMATOCRIT 31.9 % (31.2-41.9); HEMOGLOBIN 11.3 g/dL (10.9-14.3); LYMPHOCYTES # (AUTO) 1.3 K/uL (20.0-40.0); LYMPHOCYTES % (AUTO) 29.7 % (20.5-51.5); MEAN CORPUSCULAR HEMOGLOBIN 36.9 uug (24.7-32.8); MEAN CORPUSCULAR HGB CONC 36 g/dL (32.3-35.6); MONOCYTES # (AUTO) 0.5 K/uL (2.0-10.0); MONOCYTES % (AUTO) 12.9 % (0.0-11.0); NEUTROPHILS # (AUTO) 2.2 K/uL (1.8-8.9); NEUTROPHILS % (AUTO) 50.9 % (38.5-71.5); PLATELET COUNT (AUTO) 135 K/uL (179-408); RED BLOOD CELL COUNT(AUTO) 3.07 MIL/uL (3.63-4.92); WHITE BLOOD COUNT (AUTO) 4.3 K/uL (3.8-11.8)
[2018-07-11 07:05] LABS: BILIRUBIN,TOTAL 0.2 mg/dL (0.2-1.0); CREATININE 0.6 mg/dL (0.6-1.3); POTASSIUM 4.1 mmol/L (3.5-5.1); TOTAL PROTEIN, SERUM 7.1 g/dL (6.4-8.2)
--- NOTE | 2018-07-11 07:10 | NUR ---
End of Shift Patient is in bed, awake, alert and verbally responsive. Breathing even and non labored. Patient continues on a modified Valium taper. Patient noted with steady gait and no assistance needed. Patient received PRN Mobic and Clonidine with medication noted to be effective. Patient noted to sleep a total of 8 hours. Last noted CIWA 10. All needs attended to promptly. Will endorse to continue plan of care as ordered.
[2018-07-11 08:00] VITALS: BP 91/58
--- NOTE | 2018-07-11 08:00 | NUR ---
Start of Shift Notes/CIWA Assessment: Patient endorsement received from night nurse. Patient is a 53 year old female admitted for ETOH withdrawal who was placed on a 5-day Valium taper as ordered. She was given PRN Clonidine and Mobic as ordered. Last CIWA 10 and slept for a total of 7 hours. Received patient in her room. Alert and oriented x 4. Denies S/I or H/I noted. No AV hallucinations noted. She appears disheveled, and worried. Noted with gross tremors, complains of intermittent sweating, increased anxiety, agitation and generalized discomfort. CIWA 10 upon this assessment. She also complains of 8/10 generalized pain and headache, receives Lidocaine patch for pain management. Encouraged patient to verbalize her feelings and concerns. Educated patient on her current plan of care for the day and her medication regimen. Encourage oral fluid intake and encouraged group participation to learn new skills to prevent relapse. All needs met and attended. Will continue to monitor closely.
[2018-07-11] MEDS: CARBAMAZEPINE 200 MG TABLET PO SCH ×2 (08:33→16:33)
[2018-07-11] MEDS: FOLIC ACID 1 MG TABLET PO SCH (08:33)
[2018-07-11] MEDS: busPIRone 10 MG TABLET PO SCH ×3 (08:33→16:33)
[2018-07-11] MEDS: ESCITALOPRAM OXALATE 10 MG TABLET PO SCH (08:33)
[2018-07-11] MEDS: MULTIVITAMINS,THERAPEUTIC TABLET PO SCH (08:33)
[2018-07-11] MEDS: THIAMINE HCL 100 MG TABLET PO SCH (08:33)
[2018-07-11] MEDS: MELOXICAM 7.5 MG TABLET PO PRN ×2 (08:33→22:12)
[2018-07-11] MEDS: GABAPENTIN 300 MG CAPSULE PO SCH ×3 (08:33→16:33)
[2018-07-11] MEDS: LIDOCAINE 5% PATCH TD SCH (08:33)
--- NOTE | 2018-07-11 08:33 | NUR ---
Tylenol 650 mg PO/Mobic PO as ordered: Patient complained of 8/10 generalized pain, and headache. Non-pharmacological interventions provided but ineffective. Medicated patient with Tylenol 650 mg PO and Mobic PO as ordered. Oral intake encouraged to prevent stomach upset. Will continue to monitor.
--- NOTE | 2018-07-11 09:33 | NUR ---
Re-assessment: Tylenol/Mobic Patient verbalizes relief from generalized body pain and headache. She reports her pain level is now a 3 out of 10. PRN Tylenol and Mobic was effective.
[2018-07-11 12:00] VITALS: BP 115/61
--- NOTE | 2018-07-11 12:30 | NUR ---
CIWA Assessment: CIWA 8, patient continues to present with s/s of withdrawal m/b increased anxiety, agitation, gross tremors and intermittent perspiration. Offered PO fluids and support. Will continue to monitor.
[2018-07-11] MEDS ORDERED: MELO-105 PO (13:42)
[2018-07-11] MEDS ORDERED: METH-406 PO (13:42)
[2018-07-11] MEDS ORDERED: GABA-534 PO (13:42)
[2018-07-11] MEDS ORDERED: CLON0.1T14 PO (13:42)
[2018-07-11] MEDS ORDERED: TRAZ-214 PO (13:42)
[2018-07-11] MEDS ORDERED: BUSP10TA3 PO (13:42)
[2018-07-11] MEDS ORDERED: CARB200T8 PO (13:42)
[2018-07-11] MEDS ORDERED: ESCI10TA PO (13:42)
[2018-07-11] MEDS ORDERED: ALBU18HF2 INH (13:42)
[2018-07-11] MEDS ORDERED: HYDR-3895 PO (13:42)
--- NOTE | 2018-07-11 15:24 | NUR ---
PRN CLONIDINE Patient reports increase anxiety, and agitation. Provided with non pharmacological interventions with no relief, administered clonidine 0.1mg PO as ordered,endorsed to primary nurse to f/u effectiveness.
[2018-07-11 16:00] VITALS: BP 94/72
--- NOTE | 2018-07-11 16:10 | NUR ---
CIWA Assessment: CIWA 8, patient continues to present with intermittent sweating, myalgia, anxiety, agitation and generalized discomfort. Offered PRNs. Will medicate patient as ordered.
--- NOTE | 2018-07-11 16:24 | NUR ---
Re-assessment: Clonidine Patient verbalizes relief from anxiety and agitation. PRN Clonidine was effective.
--- NOTE | 2018-07-11 19:04 | NUR ---
End of Shift Notes: Patient completed her 5-day Valium taper and will be discharging tomorrow AM. VS monitored closely. No significant abnormalities noted. Withdrawal symptoms were closely monitored. Initial CIWA 10, patient presented with gross tremors, intermittent perspiration, myalgia, anxiety, agitation, worried facial expression, and generalized discomfort. Last CIWA 8. Patient verbalizes that Valium has been effective in reducing her withdrawal symptoms. Patient was able to participate in group and activities despite her withdrawal symptoms. PRN Tylenol and Mobic given at 0833 for headache and generalized pain with help and Clonidine 0.1mg PO given at 1534 with help. Appetite good. All needs met and attended. Will continue to monitor.
--- NOTE | 2018-07-11 19:30 | NUR ---
Start of Shift Patient Received. Per endorsement, patient has completed a 5 day Valium taper. Patient is set for discharge tomorrow 07/12/18. She received Tylenol, Mobic, and Clonidine with medications noted to be effective. Last noted COWS 8. Patient has been compliant with medications and plan of care as ordered. Upon rounds, patient is noted to be in the activities room participating in a group meeting. Will continue plan of care as ordered.
[2018-07-11 20:28] VITALS: BP 109/75
--- NOTE | 2018-07-11 20:30 | NUR ---
CIWA assessment Patient continues to be monitored for increased signs and symptoms of withdrawal. He is noted with increased body aches, Restlessness, tremulous, increased anxiety, agitation, and increased sweats. Patient verbalizes that medication has been noted to minimize symptoms. CIWA noted to be 12. Will continue to monitor.
[2018-07-11] MEDS: TRAZODONE 100 MG TABLET PO SCH (22:12)
--- NOTE | 2018-07-11 22:15 | NUR ---
PRN Medication Administration Patient is noted verbalizing increased pain and requesting PRN Mobic. Medication administered. Will continue to monitor.
--- NOTE | 2018-07-11 23:15 | NUR ---
PRN Medication Reassessment Patient is noted in bed with eyes closed. Breathing even and non labored. PRN Mobic noted to be effective. Will continue to monitor.
--- NOTE | 2018-07-12 00:25 | NUR ---
CIWA Assessment Patient is noted in bed with eyes closed. Breathing even and non labored. No restlessness or facial grimacing noted. CIWA not able to be completed as per order. Vital signs refused. Will continue to monitor.
--- NOTE | 2018-07-12 06:58 | NUR ---
End of Shift Patient is in bed with eyes closed. Breathing even and non labored. No signs of restlessness or discomfort noted. Patient has completed a 5 day Valium taper. She is set for discharge today 07/12/18. She received PRN Mobic with medication noted to be effective. Patient noted to sleep a total of 7 hours Last noted CIWA 12. All needs attended to promptly. Will endorse to continue plan of care as ordered.
--- NOTE | 2018-07-12 07:38 | NUR ---
Start Of Shift / CIWA 8 Received 53 y/o F admitted on 07/05/18 for medically supervised ETOH withdrawal. Pt has completed a 5 day valium taper and tolerated well. Pt is scheduled to be discharged today. Received pt a/ox4, respirations even and unlabored. Pt has a disheveled appearance, has a depressive mood, with flat affect. Pt presents anxiety, agitation, restlessness, clammy skin, pain in the L rib cage fx r/t s/p fall, increased emotional amplitude, dysphoria, anhedonia, tremors are noted. Last CIWA 12, mobic prn given last night and slept 7 hrs. Side rails upx2, bed in lowest position. Call light is within reach. Will continue to monitor.
[2018-07-12 08:00] VITALS: BP 102/60
[2018-07-12] MEDS: THIAMINE HCL 100 MG TABLET PO SCH (08:22)
[2018-07-12] MEDS: CARBAMAZEPINE 200 MG TABLET PO SCH (08:22)
[2018-07-12] MEDS: MULTIVITAMINS,THERAPEUTIC TABLET PO SCH (08:22)
[2018-07-12] MEDS: ESCITALOPRAM OXALATE 10 MG TABLET PO SCH (08:22)
[2018-07-12] MEDS: GABAPENTIN 300 MG CAPSULE PO SCH (08:22)
[2018-07-12] MEDS: busPIRone 10 MG TABLET PO SCH (08:22)
[2018-07-12] MEDS: FOLIC ACID 1 MG TABLET PO SCH (08:23)
[2018-07-12] MEDS: MELOXICAM 7.5 MG TABLET PO PRN (08:23)
[2018-07-12 08:24] VITALS: BP 102/60
[2018-07-12] MEDS: CLONIDINE HCL 0.1 MG TABLET PO PRN (08:24)
--- NOTE | 2018-07-12 08:24 | NUR ---
PRN Mobic and clonidine prns given for c/o anxiety, pain in the L ribcage 8/10 pain. Will monitor and reassess.
[2018-07-12] MEDS: LIDOCAINE 5% PATCH TD SCH (08:25)
--- NOTE | 2018-07-12 09:24 | NUR ---
Reassessment Pt reports med as effective; anxiety and pain is low at a tolerable level.
--- NOTE | 2018-07-12 09:37 | NUR ---
Discharge Note Pt is in stable condition, VS wnl. Pt has been given d/c instructions and pt verbalize understanding. Last CIWA 8. aware of pt d/c. Pt has left the building on 07/12/18 0937 with all belongings, home meds, d/c paperwork and is discharging to home.
== END 2018-07-12 09:37 | disposition home or self-care (01) | DRG 772 ==
LOC: SRC 19:57
PROVIDERS: ADMIT Internal Medicine; ATTEND Internal Medicine
PROC: HZ2ZZZZ Detoxification Services for Substance Abuse Treatment (ICD-10-PCS; principal; 2018-07-05)
PROC: HZ41ZZZ Group Counseling for Substance Abuse Treatment, Behavioral (ICD-10-PCS; 2018-07-09)
PROC: HZ31ZZZ Individual Counseling for Substance Abuse Treatment, Behavioral (ICD-10-PCS; 2018-07-09)
DX: F10.239 Alcohol dependence with withdrawal, unspecified (principal); F50.00 Anorexia nervosa, unspecified; F33.2 Major depressive disorder, recurrent severe without psychotic features; D69.59 Other secondary thrombocytopenia; K85.20 Alcohol induced acute pancreatitis without necrosis or infection; R56.9 Unspecified convulsions; F15.21 Other stimulant dependence, in remission; Y90.9 Presence of alcohol in blood, level not specified; F41.1 Generalized anxiety disorder; J45.909 Unspecified asthma, uncomplicated; Z87.01 Personal history of pneumonia (recurrent); K21.9 Gastro-esophageal reflux disease without esophagitis; G47.00 Insomnia, unspecified; F17.210 Nicotine dependence, cigarettes, uncomplicated; R73.9 Hyperglycemia, unspecified; Z81.3 Family history of other psychoactive substance abuse and dependence; Z79.899 Other long term (current) drug therapy
CPT/HCPCS: 36415; 70030-TC; 80307; 80346; 83690; 83735; 84443; 85025; 86592; 86705; 86803; 87340; 87806; G0480; J1885; J3411; Q0162

== ENCOUNTER 2018-07-25 00:04 | Emergency (ER) | payer MEDICAID ==
[~2018-07-25] VITALS: Ht 170.2 cm; Wt 56.2 kg
[~2018-07-25 00:04] MED LIST changes: -BENZ1LOZ58 MM; -DIPH50CA37 PO; +MELO-105 PO
--- NOTE | 2018-07-25 00:33 | NUR ---
DANDY ARAUJO AT BEDSIDE.
--- NOTE | 2018-07-25 00:42 | NUR ---
Patient discharged to home in stable conditon. Written and verbal after care instructions given. Patient verbalizes understanding of instructions. PT D/C W/ PRESCRIPTION. ALL BELONGINGS W/ PT. PT SELF-AMBULATED WITHOUT DIFFICULTY.
[2018-07-25 00:43] VITALS: BP 112/76
== END 2018-07-25 00:50 | disposition home or self-care (01) ==
LOC: ER 00:08
DX: F10.20 Alcohol dependence, uncomplicated (principal); M54.6 Pain in thoracic spine; F17.200 Nicotine dependence, unspecified, uncomplicated; Z88.0 Allergy status to penicillin
CPT/HCPCS: 99281; 99406; A4663

== ENCOUNTER 2018-10-27 13:33 | Inpatient (IN) | payer MEDICAID, OTHER ==
[~2018-10-27] VITALS: Ht 172.7 cm; Wt 53.5 kg
[2018-10-27] MEDS ORDERED: CLOB15CR4 TP (14:10)
[2018-10-27] MEDS ORDERED: ONDA4TAB5 (14:12)
[2018-10-27] MEDS ORDERED: [UNRECOGNIZED DRUG - CODE] TP (14:15)
[2018-10-27] MEDS ORDERED: DICL100G16 TP (14:18)
[2018-10-27] MEDS ORDERED: [UNRECOGNIZED DRUG - CODE] TP (14:22)
[2018-10-27] MEDS ORDERED: IBUP-1955 PO (14:27)
[2018-10-27] MEDS ORDERED: TRIA15CR2 TP (14:29)
[2018-10-27] MEDS ORDERED: BUSP15TA3 PO (14:34)
[2018-10-27] MEDS ORDERED: CLOBETASOL PROPIONATE 0.05% CREAM 15 GM TUBE TP PRN (15:15)
[2018-10-27] MEDS ORDERED: PATIENT MAY USE OWN MED- MD OK INH PRN (15:15)
[2018-10-27] MEDS ORDERED: LOPERAMIDE HCL 2 MG CAPSULE PO PRN ×2 (15:30)
[2018-10-27] MEDS ORDERED: MIRALAX 17 GM POWD.PACK PO PRN (15:30)
[2018-10-27] MEDS ORDERED: diphenhydrAMINE 50 MG CAPSULE PO PRN (15:30)
[2018-10-27] MEDS ORDERED: 5 DAY TAPER VALIUM-SERENITY PROTOCOL PO PRN (15:30)
[2018-10-27] MEDS ORDERED: MAG HYDROX/AL HYDROX/SIMETH 30 ML LIQUID UDC PO PRN (15:30)
[2018-10-27] MEDS ORDERED: LORAZEPAM 2 MG/1 ML VIAL IM PRN (15:30)
[2018-10-27] MEDS ORDERED: DIAZEPAM 5 MG TABLET PO PRN (15:30)
[2018-10-27] MEDS ORDERED: MAGNESIUM HYDROXIDE 30 ML LIQUID UDC PO PRN (15:30)
[2018-10-27] MEDS ORDERED: THIAMINE HCL 200 MG/2 ML VIAL IM ONE (15:30)
[2018-10-27] MEDS ORDERED: DIAZEPAM 10 MG TABLET PO PRN ×2 (15:30)
[2018-10-27] MEDS ORDERED: ONDANSETRON ODT 4 MG TAB.RAPDIS SL PRN (15:30)
[2018-10-27] MEDS ORDERED: ONDANSETRON 4 MG/2 ML VIAL IM PRN (15:30)
[2018-10-27 15:59] LABS: *URINE HCG, QUAL NEGATIVE (NEGATIVE)
[2018-10-27] MEDS: DIAZEPAM 10 MG TABLET PO SCH ×3 (16:02→22:00)
[2018-10-27] MEDS: MULTIVITAMINS,THERAPEUTIC TABLET PO SCH (16:02)
[2018-10-27] MEDS: GABAPENTIN 300 MG CAPSULE PO SCH (16:02)
[2018-10-27] MEDS: FOLIC ACID 1 MG TABLET PO SCH (16:02)
[2018-10-27 16:15] LABS: *AMPHETAMINE, URINE NEGATIVE (NEGATIVE); *BARBITURATE, URINE NEGATIVE (NEGATIVE); *CANNABINOID, URINE NEGATIVE (NEGATIVE); *COCCAINE, URINE NEGATIVE (NEGATIVE); *OPIATE, URINE NEGATIVE (NEGATIVE); *PHENCYCLIDINE SCREEN,URINE NEGATIVE (NEGATIVE)
[2018-10-27 16:17] VITALS: BP 104/69
[2018-10-27 17:00] VITALS: BP 95/61
[2018-10-27] MEDS ORDERED: ALBUTEROL SULFATE 2.5 MG/3 ML NEBU NEB PRN (17:00)
[2018-10-27] MEDS: MOMETASONE INH SCH (17:08)
[2018-10-27] MEDS: [UNRECOGNIZED DRUG - OTHER] INH SCH (17:08)
[2018-10-27] MEDS: CARBAMAZEPINE 200 MG TABLET PO SCH (17:08)
[2018-10-27] MEDS: FORMOTEROL INH SCH (17:08)
[2018-10-27 17:39] LABS: BASOPHILS # (AUTO) 0.1 K/uL (0.0-8.0); BASOPHILS % (AUTO) 2.5 % (0.0-2.0); EOSINOPHILS # (AUTO) 0.1 K/uL (0.0-0.7); EOSINOPHILS % (AUTO) 2.7 % (0.0-7.0); HEMOGLOBIN 11.8 g/dL (10.9-14.3); LYMPHOCYTES # (AUTO) 2.8 K/uL (20.0-40.0); LYMPHOCYTES % (AUTO) 57.6 % (20.5-51.5); MEAN CORPUSCULAR HEMOGLOBIN 36.1 uug (24.7-32.8); MEAN CORPUSCULAR HGB CONC 36 g/dL (32.3-35.6); MEAN CORPUSCULAR VOLUME 101.2 fL (75.5-95.3); MONOCYTES # (AUTO) 0.4 K/uL (2.0-10.0); MONOCYTES % (AUTO) 7.6 % (0.0-11.0); NEUTROPHILS # (AUTO) 1.5 K/uL (1.8-8.9); NEUTROPHILS % (AUTO) 29.6 % (38.5-71.5); PLATELET COUNT (AUTO) 193 K/uL (179-408); RED BLOOD CELL COUNT(AUTO) 3.26 MIL/uL (3.63-4.92); WHITE BLOOD COUNT (AUTO) 4.9 K/uL (3.8-11.8)
[2018-10-27 18:03] LABS: BILIRUBIN,TOTAL 0.3 mg/dL (0.2-1.0); CREATININE 0.7 mg/dL (0.6-1.3); MAGNESIUM 1.6 mg/dL (1.8-2.4); POTASSIUM 3.4 mmol/L (3.5-5.1); TOTAL PROTEIN, SERUM 7.3 g/dL (6.4-8.2)
[2018-10-27 18:14] LABS: THYROID STIMULATING HORMONE 2.924 mIU/mL (0.358-3.740)
[2018-10-27] MEDS ORDERED: MAGNESIUM OXIDE 400 MG TABLET PO ONE (19:45)
[2018-10-27] MEDS ORDERED: POTASSIUM CHLORIDE 20 MEQ TAB.PRT.SR PO ONE (19:45)
[2018-10-27 20:00] VITALS: BP 103/62
[2018-10-28] VITALS: BP 97/58
[2018-10-28] MEDS: IBUPROFEN 600 MG TABLET PO PRN (02:19)
[2018-10-28 04:00] VITALS: BP 100/72
[2018-10-28 08:00] VITALS: BP 107/68
[2018-10-28] MEDS ORDERED: TUBERCULIN,PURIF.PROT.DERIV. 5 TU/0.1 ML TEST ID ONE (09:00)
[2018-10-28 09:06] LABS: CREATININE 0.7 mg/dL (0.6-1.3); POTASSIUM 3.7 mmol/L (3.5-5.1)
[2018-10-28] MEDS: ESCITALOPRAM OXALATE 10 MG TABLET PO SCH (09:38)
[2018-10-28] MEDS: busPIRone 10 MG TABLET PO SCH ×2 (09:38→17:06)
[2018-10-28] MEDS: CARBAMAZEPINE 200 MG TABLET PO SCH ×2 (09:39→17:06)
[2018-10-28] MEDS: GABAPENTIN 300 MG CAPSULE PO SCH ×3 (09:39→17:06)
[2018-10-28] MEDS: FORMOTEROL INH SCH ×2 (09:39→17:06)
[2018-10-28] MEDS: FOLIC ACID 1 MG TABLET PO SCH (09:39)
[2018-10-28] MEDS: MOMETASONE INH SCH ×2 (09:39→17:06)
[2018-10-28] MEDS: MULTIVITAMINS,THERAPEUTIC TABLET PO SCH (09:39)
[2018-10-28] MEDS: DIAZEPAM 5 MG TABLET PO SCH ×4 (09:39→21:08)
[2018-10-28] MEDS: [UNRECOGNIZED DRUG - OTHER] INH SCH ×2 (09:39→17:06)
[2018-10-28] MEDS: THIAMINE HCL 100 MG TABLET PO SCH (09:39)
[2018-10-28 12:00] VITALS: BP 121/80
[2018-10-28 16:00] VITALS: BP 124/82
[2018-10-28 20:00] VITALS: BP 136/84
[2018-10-28] MEDS: TRAZODONE 100 MG TABLET PO PRN (21:08)
[2018-10-28] MEDS ORDERED: DIAZEPAM 5 MG TABLET PO PRN (21:30)
[2018-10-28] MEDS ORDERED: DIAZEPAM 10 MG TABLET PO PRN ×2 (21:30)
[2018-10-29] VITALS: BP 114/73
[2018-10-29 08:00] VITALS: BP 104/63
[2018-10-29 08:09] LABS: HEPATITIS B SURFACE AG Negative (Negative)
[2018-10-29] MEDS: busPIRone 10 MG TABLET PO SCH (09:00)
[2018-10-29] MEDS ORDERED: DIAZEPAM 5 MG TABLET PO SCH (09:00)
[2018-10-29] MEDS: FORMOTEROL INH SCH ×2 (09:06→17:28)
[2018-10-29] MEDS: MOMETASONE INH SCH ×2 (09:06→17:28)
[2018-10-29] MEDS: [UNRECOGNIZED DRUG - OTHER] INH SCH ×2 (09:06→17:28)
[2018-10-29] MEDS: THIAMINE HCL 100 MG TABLET PO SCH (09:06)
[2018-10-29] MEDS: ESCITALOPRAM OXALATE 10 MG TABLET PO SCH (09:07)
[2018-10-29] MEDS: GABAPENTIN 300 MG CAPSULE PO SCH ×3 (09:07→17:28)
[2018-10-29] MEDS: MULTIVITAMINS,THERAPEUTIC TABLET PO SCH (09:07)
[2018-10-29] MEDS: FOLIC ACID 1 MG TABLET PO SCH (09:07)
[2018-10-29] MEDS: CARBAMAZEPINE 200 MG TABLET PO SCH ×2 (09:07→17:28)
[2018-10-29 12:00] VITALS: BP 137/77
[2018-10-29] MEDS ORDERED: OXYMETAZOLINE NASAL 0.05% 15 ML SPRAY NS PRN (12:00)
[2018-10-29] MEDS ORDERED: 5 DAY TAPER VALIUM-SERENITY PROTOCOL PO PRN (13:00)
[2018-10-29] MEDS: BENZOCAINE/MENTH/CETYLPYRD LOZENGE MM PRN (13:22)
[2018-10-29] MEDS: DIAZEPAM 10 MG TABLET PO SCH ×2 (14:38→21:02)
[2018-10-29 16:30] VITALS: BP 116/74
[2018-10-29] MEDS: IBUPROFEN 600 MG TABLET PO PRN (17:40)
[2018-10-29 20:26] VITALS: BP 116/79
[2018-10-30 08:00] VITALS: BP 96/69
[2018-10-30] MEDS: MULTIVITAMINS,THERAPEUTIC TABLET PO SCH (08:17)
[2018-10-30] MEDS: THIAMINE HCL 100 MG TABLET PO SCH (08:17)
[2018-10-30] MEDS: GABAPENTIN 300 MG CAPSULE PO SCH ×3 (08:17→16:32)
[2018-10-30] MEDS: FOLIC ACID 1 MG TABLET PO SCH (08:17)
[2018-10-30] MEDS: CARBAMAZEPINE 200 MG TABLET PO SCH ×2 (08:17→16:32)
[2018-10-30] MEDS: FORMOTEROL INH SCH ×2 (08:18→16:32)
[2018-10-30] MEDS: DIAZEPAM 5 MG TABLET PO SCH ×4 (08:18→20:08)
[2018-10-30] MEDS: ESCITALOPRAM OXALATE 10 MG TABLET PO SCH (08:18)
[2018-10-30] MEDS: MOMETASONE INH SCH ×2 (08:18→16:32)
[2018-10-30] MEDS: [UNRECOGNIZED DRUG - OTHER] INH SCH ×2 (08:18→16:32)
[2018-10-30] MEDS ORDERED: DIAZEPAM 5 MG TABLET PO SCH (09:00)
[2018-10-30 12:00] VITALS: BP 107/81
[2018-10-30 16:00] VITALS: BP 128/89
[2018-10-30] MEDS: HYDROXYZINE PAMOATE 25 MG CAPSULE PO PRN (18:52)
[2018-10-30 20:05] VITALS: BP 120/80
[2018-10-31] MEDS: TRAZODONE 100 MG TABLET PO PRN ×2 (01:35→23:57)
[2018-10-31] MEDS: HYDROXYZINE PAMOATE 25 MG CAPSULE PO PRN (01:35)
[2018-10-31 01:38] VITALS: BP 123/78
[2018-10-31 08:00] VITALS: BP 103/74
[2018-10-31] MEDS: FORMOTEROL INH SCH ×2 (08:11→16:38)
[2018-10-31] MEDS: BENZOCAINE/MENTH/CETYLPYRD LOZENGE MM PRN (08:11)
[2018-10-31] MEDS: ESCITALOPRAM OXALATE 10 MG TABLET PO SCH (08:11)
[2018-10-31] MEDS: FOLIC ACID 1 MG TABLET PO SCH (08:11)
[2018-10-31] MEDS: [UNRECOGNIZED DRUG - OTHER] INH SCH ×2 (08:11→16:38)
[2018-10-31] MEDS: DIAZEPAM 5 MG TABLET PO SCH ×3 (08:11→20:23)
[2018-10-31] MEDS: CARBAMAZEPINE 200 MG TABLET PO SCH ×2 (08:11→16:38)
[2018-10-31] MEDS: THIAMINE HCL 100 MG TABLET PO SCH (08:11)
[2018-10-31] MEDS: MOMETASONE INH SCH ×2 (08:11→16:38)
[2018-10-31] MEDS: MULTIVITAMINS,THERAPEUTIC TABLET PO SCH (08:11)
[2018-10-31] MEDS: GABAPENTIN 300 MG CAPSULE PO SCH ×3 (08:11→16:38)
[2018-10-31] MEDS: ACETAMINOPHEN 325 MG TABLET PO PRN ×2 (08:47→20:23)
[2018-10-31] MEDS ORDERED: DIAZEPAM 5 MG TABLET PO SCH (09:00)
[2018-10-31 12:00] VITALS: BP 105/68
[2018-10-31 16:00] VITALS: BP 130/82
[2018-10-31 20:00] VITALS: BP 102/70
[2018-11-01] VITALS: BP 111/77
[2018-11-01 08:00] VITALS: BP 98/66
[2018-11-01] MEDS: DIAZEPAM 5 MG TABLET PO SCH ×2 (08:29→21:41)
[2018-11-01] MEDS: CARBAMAZEPINE 200 MG TABLET PO SCH ×2 (08:29→16:56)
[2018-11-01] MEDS: MULTIVITAMINS,THERAPEUTIC TABLET PO SCH (08:29)
[2018-11-01] MEDS: IBUPROFEN 600 MG TABLET PO PRN ×2 (08:29→16:56)
[2018-11-01] MEDS: GABAPENTIN 300 MG CAPSULE PO SCH ×3 (08:29→16:56)
[2018-11-01] MEDS: ACETAMINOPHEN 325 MG TABLET PO PRN (08:29)
[2018-11-01] MEDS: FOLIC ACID 1 MG TABLET PO SCH (08:29)
[2018-11-01] MEDS: THIAMINE HCL 100 MG TABLET PO SCH (08:29)
[2018-11-01] MEDS: ESCITALOPRAM OXALATE 10 MG TABLET PO SCH (08:30)
[2018-11-01] MEDS: [UNRECOGNIZED DRUG - OTHER] INH SCH ×2 (08:36→16:57)
[2018-11-01] MEDS: MOMETASONE INH SCH ×2 (08:36→16:57)
[2018-11-01] MEDS: FORMOTEROL INH SCH ×2 (08:36→16:57)
[2018-11-01 12:00] VITALS: BP 127/78
[2018-11-01] MEDS: CLONIDINE HCL 0.1 MG TABLET PO PRN ×2 (13:09→21:42)
[2018-11-01 16:00] VITALS: BP 117/76
[2018-11-01 20:00] VITALS: BP 106/67
[2018-11-02 08:00] VITALS: BP 110/66
[2018-11-02] MEDS: ESCITALOPRAM OXALATE 10 MG TABLET PO SCH (08:16)
[2018-11-02] MEDS: FOLIC ACID 1 MG TABLET PO SCH (08:16)
[2018-11-02] MEDS: GABAPENTIN 300 MG CAPSULE PO SCH ×3 (08:16→17:17)
[2018-11-02] MEDS: THIAMINE HCL 100 MG TABLET PO SCH (08:16)
[2018-11-02] MEDS: MULTIVITAMINS,THERAPEUTIC TABLET PO SCH (08:16)
[2018-11-02] MEDS: CARBAMAZEPINE 200 MG TABLET PO SCH ×2 (08:16→17:17)
[2018-11-02] MEDS: FORMOTEROL INH SCH ×2 (08:46→17:17)
[2018-11-02] MEDS: MOMETASONE INH SCH ×2 (08:46→17:17)
[2018-11-02] MEDS: [UNRECOGNIZED DRUG - OTHER] INH SCH ×2 (08:46→17:17)
[2018-11-02] MEDS ORDERED: DIAZEPAM 5 MG TABLET PO SCH (09:00)
[2018-11-02 12:00] VITALS: BP 105/67
[2018-11-02] MEDS: CLONIDINE HCL 0.1 MG TABLET PO PRN ×2 (14:37→21:32)
[2018-11-02] MEDS: HYDROXYZINE PAMOATE 25 MG CAPSULE PO PRN ×2 (14:37→21:32)
[2018-11-02 16:00] VITALS: BP 117/77
[2018-11-02 20:00] VITALS: BP 102/67
[2018-11-02] MEDS: TRAZODONE 100 MG TABLET PO PRN (22:12)
[2018-11-03 04:00] VITALS: BP 100/71
[2018-11-03] MEDS: HYDROXYZINE PAMOATE 25 MG CAPSULE PO PRN (04:07)
== END 2018-11-03 05:12 | DRG 772 ==
LOC: SRC 13:33
PROVIDERS: ADMIT Family Medicine Addiction Medicine; ATTEND Family Medicine Addiction Medicine
PROC: HZ2ZZZZ Detoxification Services for Substance Abuse Treatment (ICD-10-PCS; principal; 2018-10-27)
PROC: HZ31ZZZ Individual Counseling for Substance Abuse Treatment, Behavioral (ICD-10-PCS; 2018-10-28)
PROC: HZ41ZZZ Group Counseling for Substance Abuse Treatment, Behavioral (ICD-10-PCS; 2018-10-29)
DX: F10.231 Alcohol dependence with withdrawal delirium (principal); F50.00 Anorexia nervosa, unspecified; G40.509 Epileptic seizures related to external causes, not intractable, without status epilepticus; Y90.3 Blood alcohol level of 60-79 mg/100 ml; Z86.73 Personal history of transient ischemic attack (TIA), and cerebral infarction without residual deficits; N95.9 Unspecified menopausal and perimenopausal disorder; Z87.01 Personal history of pneumonia (recurrent); Z68.1 Body mass index [BMI] 19.9 or less, adult; J45.20 Mild intermittent asthma, uncomplicated; F41.1 Generalized anxiety disorder; J02.8 Acute pharyngitis due to other specified organisms; F32.9 Major depressive disorder, single episode, unspecified; F11.11 Opioid abuse, in remission
CPT/HCPCS: 36415; 70030-TC; 80307; 80346; 83690; 83735; 84443; 84703; 85025; 86580; 86592; 86705; 86803; 87340; 87806; 93005; A4663; G0480; J3411